=== PATIENT | female | born 2005 | race Hispanic/Latino ===

== ENCOUNTER 2024-08-15 16:01 | Emergency (ER) | payer OTHER ==
--- NOTE | 2024-08-15 18:49 | RAD REPORT ---
EXAM: CT Head Brain Wo Cont HISTORY: TRAUMA COMPARISON: None TECHNIQUE: Multiple contiguous axial images were obtained for a CT of the brain without contrast. Sag ittal and coronal reformats were performed. One or more of the following dose reduction techniques were used: Automated exposure control, adjus tment of the mA and kV according to patient size, and iterative reconstruction. Unless otherwise specified, incidental findings do not require dedicated imaging follow-up. FINDINGS: No evidence of hydrocephalus, intracranial hemorrhage, or extra-axial fluid collection. The brain is normal in morphology. The calvarium is intact. The visualized paranasal sinuses and mastoid air cells are essentially clear . IMPRESSION: No evidence of acute intracranial abnormality.
--- NOTE | 2024-08-15 19:14 | ER ---
Nurse's Notes [facility] Name: Jacob Nieto Age: 19 yrs Sex: Female : 2005 Arrival Date: 08/15/2024 Time: 16:01 Bed 10 Private MD: Diagnosis: Unspecified injury of head, initial encounter Presentation: 08/15 16:23 Chief complaint: Patient states: SLIPPED AND FELL ON GLOVE, HIT HEAD ON BACK OF db CABINET. HAD DIZZINESS, VOMITING, HEADACHE. Coronavirus screen: Client denies travel out of the [place] in the last 14 days. At this time, the client does not indicate any symptoms associated with coronavirus-19. Ebola Screen: Patient negative for fever greater than or equal to 101.5 degrees Fahrenheit, and additional compatible Ebola Virus Disease symptoms Patient denies exposure to infectious person. Patient denies travel to an Ebola-affected area in the 21 days before illness onset. No symptoms or risks identified at this time. Initial Sepsis Screen: Does the patient meet any 2 criteria? No. Patient's initial sepsis screen is negative. Does the patient have a suspected source of infection? No. Patient's initial sepsis screen is negative. Risk Assessment: Do you want to hurt yourself or someone else? Patient reports no desire to harm self or others. Onset of symptoms was August 15, 2024. 16:23 Method Of Arrival: Ambulatory 16:23 Acuity: HAZEL 3 db Historical: - Allergies: 16:27 PENICILLINS; db - Immunization history:: Adult Immunizations unknown. - Infectious Disease History:: Denies. - Social history:: Smoking status: Patient denies any tobacco usage or history of. Screenin:15 Abuse screen: Denies threats or abuse. Denies injuries from another. Nutritional ss screening: No deficits noted. Tuberculosis screening: Never had TB. Assessment: 18:15 General: Appears in no apparent distress. comfortable, Behavior is calm, cooperative, ss Denies fever, feeling ill. Neuro: Level of Consciousness is awake, alert, obeys commands, Oriented to person, place, time, situation. Respiratory: Airway is patent Respiratory effort is even, unlabored, Respiratory pattern is regular, symmetrical. GI: Patient currently denies nausea. EENT: Oral mucosa is moist. Derm: Skin is intact, is healthy with good turgor, Skin is pink, warm \T\ dry. normal. 19:32 Reassessment: Patient states feeling better. Patient states symptoms have improved. br2 Vital Signs: 16:23 BP 122 / 85; Pulse 66; Resp 16; Temp 97.3; Pulse Ox 95% ; Weight 76.2 kg; Height 4 ft. db 11 in. ; 16:23 Body Mass Index 33.93 (76.20 kg, 149.86 cm) db ED Course: 16:02 Patient arrived in ED. mr 16:02 Yenny Bliss FNP-C is PHCP. kb 16:02 Malena Mcclelland MD is Attending Physician. kb 16:27 Triage completed. db 16:28 Arm band placed on. db 17:10 CT Head Brain wo Cont In Process Unspecified. EDMS 18:15 Patient has correct armband on for positive identification. ss 18:15 No provider procedures requiring assistance completed. Patient did not have IV access ss during this emergency room visit. 18:53 Pooja Diaz, RN is Primary Nurse. ss Administered Medications: No medications were administered Medication: 18:15 VIS not applicable for this client. ss Outcome: 19:14 Discharge ordered by MD. kb 19:32 Discharged to home ambulatory, br2 19:32 Condition: stable 19:32 Discharge instructions given to patient, Instructed on discharge instructions, follow up and referral plans. Demonstrated understanding of instructions, follow-up care, 19:33 Patient left the ED. br2 Signatures: Dispatcher [employer] EDIL Yenny Bliss FNP-C ORANGE PICKER-Ckb ZieglerLelia, Reg Reg Pooja Diaz, RN RN Martina Simons RN RN db Aisha Lazo, LUANA RN br2 Corrections: (The following items were deleted from the chart) 16:28 16:27 Allergies: No Known Allergies; db db
--- NOTE | 2024-08-15 19:14 | EDPHYS ---
Physician Documentation [facility] Name: Jacob Nieto Age: 19 yrs Sex: Female : 2005 Arrival Date: 08/15/2024 Time: 16:01 Bed 10 Private MD: ED Physician Malena Mcclelland HPI: 08/15 17:12 This 19 yrs old Female presents to ER via Ambulatory with complaints of Fall kb Injury, Head Injury-Adult. 17:12 Patient is a 19-year-old female who presents after a head injury that occurred at 130 kb today. States she was walking and slipped on a glove causing her to fall back and hit her head on a brick counter. States she is not sure if she lost consciousness or not. Reports vomiting a lot after the fall, dizziness and headache.. Historical: - Allergies: 16:27 PENICILLINS; db - Immunization history:: Adult Immunizations unknown. - Infectious Disease History:: Denies. - Social history:: Smoking status: Patient denies any tobacco usage or history of. ROS: 17:13 Constitutional: As per HPI kb Exam: 17:13 Constitutional: This is a well developed, well nourished patient who is awake, alert, kb and in no acute distress. Head/Face: Normocephalic, atraumatic. Eyes: Pupils equal round and reactive to light, extra-ocular motions intact. Lids and lashes normal. Conjunctiva and sclera are non-icteric and not injected. Cornea within normal limits. Periorbital areas with no swelling, redness, or edema. ENT: Moist Mucous membranes Neck: Trachea midline and no cervical lymphadenopathy. Supple, full range of motion without nuchal rigidity, or vertebral point tenderness. No Meningismus. Cardiovascular: Regular rate Respiratory: Respirations even and unlabored. No increased work of breathing. Talking in full sentences Skin: Warm, dry with normal turgor. Normal color. MS/ Extremity: Pulses equal, no cyanosis. Neurovascular intact. Full, normal range of motion. Neuro: Awake and alert, GCS 15, oriented to person, place, time, and situation. Vital Signs: 16:23 BP 122 / 85; Pulse 66; Resp 16; Temp 97.3; Pulse Ox 95% ; Weight 76.2 kg; Height 4 ft. db 11 in. ; 16:23 Body Mass Index 33.93 (76.20 kg, 149.86 cm) db MDM: 16:02 Medical Screening Exam initiated 17:13 Differential diagnosis: fracture, ICH, concussion. Data reviewed: vital signs, nurses kb notes. 19:13 I considered the following discharge prescriptions or medication management in the emergency department I discussed and recommended Over The Counter medications. Counseling: I had a detailed discussion with the patient and/or guardian regarding the historical points, exam findings, and any diagnostic results supporting the discharge/admit diagnosis, radiology results, the need for outpatient follow up, a family practitioner, to return to the emergency department if symptoms worsen or persist or if there are any questions or concerns that arise at home. 08/15 16:23 Order name: CT Head Brain wo Cont; Complete Time: 18:57 kb Administered Medications: No medications were administered Disposition Summary: 08/15/24 19:14 Discharge Ordered Notes: Location: Home Condition: Stable Diagnosis - Unspecified injury of head, initial encounter kb Followup: kb - With: Emergency Department - When: As needed - Reason: Worsening of condition Followup: kb - With: Private Physician - When: 2 - 3 days - Reason: Recheck today's complaints, Continuance of care, Re-evaluation by your physician Discharge Instructions: - Discharge Summary Sheet kb - Head Injury, Adult, [id number] Forms: - Medication Reconciliation Form kb - Antibiotic Education kb - Prescription Opioid Use kb - Patient Portal Instructions kb - Leadership Thank You Letter Signatures: Dispatcher [employer] Yenny Pryor, GRAPHITE MILL OPERATOR-C GRAPHITE MILL OPERATOR-Martina Skaggs, RN RN db Corrections: (The following items were deleted from the chart) 16:28 16:27 Allergies: No Known Allergies; db db
--- OUTSIDE RECORDS SUMMARY | 2024-08-15 21:18 | XMS REPORT | Continuity of Care Document ---
Author Name Unknown Address [address] [place] [address] [facility] Address [address] [place] [address] Care Team Providers Care Stretch Box Tender Name Role Phone ANDREW TAYLOR Primary Care Physician Caridad vailable Arabella GAMINO Attending Clinician Unavailable Arabella Acosta Attending Clinician [phone] Wendy Rehman MD Attending Clinician [phone] WENDY REHMAN Attending Clinician Unavailable Doctor Unassigned, [place] Attending Clinician U musa Garrison, Ang - Db Attending Clinician Unavailable JAGDISH ESCAMILLA Attending Clinician Unavailable PILLO BONDS Attending Clinician Caridad vailable Payers Payer Name Policy Type Policy Number Effective Date Expirati on Date Source TUNG POLLARD [id number] 2023 00:00:00 Problems Condition Name Condition Details Condition Category Status Onset Date Resolution Date Last Treatment Date Treating Clinician Comments Source Obesity (BMI 30-39.9) Obesity (BMI 30-39.9) Disease Active 2022-03 1- 00:00: 00 [facility] No known active problems No known active problems Disease [facility] Allergies, Adverse Reactions, Alerts Allergy Name Allergy Type Status Severity Reaction(s) Onset Date Inactive Date Treating Clinician Comments Source Penicill in Propensi ty to adverse reaction s to drug Active Hives 05-31 00:00: 00 [facility] PENICILL IN DRUG INGREDI Active High Hives 3-05 00:00: 00 [facility] NO KNOWN ALLERGIE S Drug Class Active [facility] Social History Social Habit Start Date Stop Date Quantity Comments Source History SDOH Alcohol Std Drinks [facility] History SDOH Alcohol Binge [facility] Exposure to SARS-CoV-2 (event) Not sure [facility] intake 2023-04-11 00:00:00 2023-04-11 00:00:00 Lifetime non-drinker (finding) [facility] History of Social function 2023-04-11 00:00:00 2023-04-11 00:00:00 [facility] Tobacco use and exposure 2023-01-20 00:00:00 2023-01-20 00:00:00 Smokeless tobacco non-user [facility] History SDOH Alcohol Frequency 2020-05-31 00:00:00 2020-05-31 00:00:00 1 [facility] Sex Assigned At 2005 00:00:00 2005 00:00:00 [facility] Smoking Status Start Date Stop Date Source Never smoked tobacco [facility] Medications Ordered Medication Name Filled Medication Name Start Date Stop Date Current Medication? Ordering Clinician Indication Dosage Frequency Signature (SIG) Comments Components Source acetaminoph en (TYLENOL) tablet 1,000 mg 04-12 03:45: 00 04-12 03:39 :00 No 1000mg 1,000 mg, Oral, ONCE, 1 dose, On 04/11/23 at 2145, Routine [facility] ondansetron 4 mg disintegrat ing tablet 04-11 00:00: 00 Yes [id number] 4mg Take 1 tablet by mouth every 8 (eight) hours as needed for Nausea and Vomiting (N/V). [facility] benzonatate 200 mg capsule 04-11 00:00: 00 Yes [id number] 200mg Take 1 capsule by mouth 3 (three) times daily as needed for Cough for up to 20 doses. [facility] lidocaine 2 % mucosal jelly 2022-03 0 00:00: 00 02-04 00:00 :00 No [id number] 1[in_us ] Apply 1 Inch to area(s) every 4 (four) hours as needed (pain). [facility] valACYclovi r (VALTREX) 1 gram tablet 2022-03 0 00:00: 00 02-04 00:00 :00 No [id number] 1g Take 1 tablet by mouth in the morning and 1 tablet in the evening. [facility] etonogestre L (NEXPLANON) implant 68 mg 06-25 20:00: 00 06-25 18:47 :00 No [id number] 68mg [facility] No known medications No [facility] No known medications No Un j[facility]el[facility] No known medications No Un joseluis [facility] Vital Signs Vital Name Observation Time Observation Value Comments S ource Systolic blood pressure 2023-04-12 02:27:00 117 mm[Hg] [facility] Diastolic blood pressure 2023-04-12 02:27:00 72 mm[Hg] [facility] Heart rate 2023-04-12 02:27:00 100 /min [facility] Body temperature 2023-04-12 02:27:00 37.39 Marilyn [facility] Respiratory rate 2023-04-12 02:27:00 18 /min [facility] Body height 2023-04-12 02:27:00 152.4 cm [facility] Body weight 2023-04-12 02:27:00 74.072 kg [facility] BMI 2023-04-12 02:27:00 31.89 kg/m2 [facility] Oxygen saturation in Arterial blood by Pulse oximetry 2023-04-12 02:27:00 99 /min [facility] Systolic blood pressure 2023-03-05 19:21:00 121 mm[Hg] [facility] Diastolic blood pressure 2023-03-05 19:21:00 77 mm[Hg] [facility] Heart rate 2023-03-05 19:21:00 100 /min [facility] Body temperature 2023-03-05 19:21:00 36.94 Marilyn [facility] Respiratory rate 2023-03-05 19:21:00 18 /min [facility] Body height 2023-03-05 19:21:00 152.4 cm [facility] Body weight 2023-03-05 19:21:00 74.39 kg [facility] BMI 2023-03-05 19:21:00 32.03 kg/m2 [facility] Body mass index (BMI) [Percentile] Per age and sex 2023-03-05 19:21:00 95.57 % [facility] Systolic blood pressure 2023-02-04 21:04:00 117 mm[Hg] [facility] Diastolic blood pressure 2023-02-04 21:04:00 81 mm[Hg] [facility] Heart rate 2023-02-04 21:04:00 114 /min [facility] Body temperature 2023-02-04 21:04:00 36.5 Marilyn [facility] Respiratory rate 2023-02-04 21:04:00 18 /min [facility] Body height 2023-02-04 21:04:00 152.4 cm [facility] Body weight 2023-02-04 21:04:00 74.844 kg [facility] BMI 2023-02-04 21:04:00 32.22 kg/m2 [facility] Body mass index (BMI) [Percentile] Per age and sex 2023-02-04 21:04:00 95.70 % [facility] Systolic blood pressure 2023-01-20 16:14:00 128 mm[Hg] [facility] Diastolic blood pressure 2023-01-20 16:14:00 80 mm[Hg] [facility] Heart rate 2023-01-20 16:14:00 104 /min [facility] Body temperature 2023-01-20 16:14:00 36.5 Marilyn [facility] Respiratory rate 2023-01-20 16:14:00 16 /min [facility] Body height 2023-01-20 16:14:00 152.4 cm [facility] Body weight 2023-01-20 16:14:00 74.526 kg [facility] BMI 2023-01-20 16:14:00 32.09 kg/m2 [facility] Body mass index (BMI) [Percentile] Per age and sex 2023-01-20 16:14:00 95.65 % [facility] Systolic blood pressure 2020-06-25 18:05:00 108 mm[Hg] [facility] Diastolic blood pressure 2020-06-25 18:05:00 65 mm[Hg] [facility] Heart rate 2020-06-25 18:05:00 91 /min [facility] Body temperature 2020-06-25 18:05:00 36.83 Marilyn [facility] Respiratory rate 2020-06-25 18:05:00 18 /min [facility] Body height 2020-06-25 18:05:00 152.4 cm [facility] Body weight 2020-06-25 18:05:00 64.411 kg [facility] BMI 2020-06-25 18:05:00 27.73 kg/m2 [facility] Systolic blood pressure 2020-05-31 20:13:00 120 mm[Hg] [facility] Diastolic blood pressure 2020-05-31 20:13:00 73 mm[Hg] [facility] Heart rate 2020-05-31 20:13:00 99 /min [facility] Body temperature 2020-05-31 20:13:00 36.78 Marilyn [facility] Respiratory rate 2020-05-31 20:13:00 16 /min [facility] Body height 2020-05-31 20:13:00 152.4 cm [facility] Body weight 2020-05-31 20:13:00 64.32 kg [facility] BMI 2020-05-31 20:13:00 27.69 kg/m2 [facility] Procedures Procedure Date / Time Performed Performing Clinicia n Source ASSIGNMENT OF BENEFITS 2023-04-12 03:01:55 Docsherman r Unassigned, [place] [facility] RAPID STREP SCREEN FOR GROUP A 2023-04-12 02:41:00 Arabella Gamino [facility] RAPID INFLUENZA A/B 2023-04-12 02:41:00 Arabella Gamino [facility] COVID-19 (ID NOW RAPID TESTING) 2023-04-12 02:41:00 Arabella Gamino [facility] CONSENT/REFUSAL FOR DIAGNOSIS AND TREATMENT 2023-04-12 02:14:23 Doctor Unassigned, [place] [facility] DISCLOSURE AND CONSENT, MEDICAL AND SURGICAL PROCEDURES 2023-03-05 06:01:00 Doctor Unassigned, [place] [facility] DISCLOSURE AND CONSENT, MEDICAL AND SURGICAL PROCEDURES 2023-02-04 06:01:00 Doctor Unassigned, [place] [facility] GC & CHLAMYDIA AMPLIFIED ASSAY 2023-01-20 18:38:00 Adum, Wendy Gonzalez [facility] WOUND/ASPIRATE OR ABSCESS CULTURE 2023-01-20 18:36:00 Adum, Wendy Gonzalez [facility] GALV ONLY - VAGINAL PATHOGENS BY NUCLEIC ACID TESTING 2023-01-20 18:36:00 Adum, Wendy Gonzalez [facility] HSV 1&2, VZV NAAT 2023-01-20 18:36:00 Adum, Wendy Woods [facility] WOUND CULTURE 2023-01-20 18:36:00 [facility] 2023-01-20 15:59:54 Docsherman r Unassigned, [place] [facility] POCT TEST 2020-06-25 00:00:00 Adum, Wendy Gonzalez [facility] POCT TEST 2020-05-31 20:29:00 Adum, Wendy Gonzalez [facility] Encounters Start Date/Time End Date/Time Encounter Type Admission Type Attending [facility] Care Facility Care Department Encounter ID Source 2023-04-11 20:45:00 2023-04-11 21:58:00 Emergency X Arabella GAMINO [facility] ERT [id number] [facility] 2023-04-11 20:45:00 2023-04-11 21:58:00 Emergency Arabella Gamino [facility] [id number] 350.1.13.10 4.2.7.2.686 [id number] [facility] 2023-03-05 13:15:00 2023-03-05 13:45:00 Office Visit AdumBelenWendy Lisa [facility] [id number] 350.1.13.10 4.2.7.2.686 [id number] [facility] 2023-03-05 13:15:00 2023-03-05 13:15:00 Outpatient R [facility] [id number] [facility] 2023-03-05 00:00:00 2023-03-05 00:00:00 Orders Only Doctor Unassigned, [place] [facility] 1.20.114 350.1.13.10 4.2.7.2.686 [id number] [facility] 2023-02-04 15:00:00 2023-02-04 15:47:46 [facility] [id number] 350.1.13.10 4.2.7.2.686 [id number] [facility] 2023-02-04 15:00:00 2023-02-04 15:47:46 Outpatient R [facility] [id number] [facility] 2023-02-04 00:00:00 2023-02-04 00:00:00 Orders Only Doctor Unassigned, [place] [facility] [id number] 350.1.13.10 4.2.7.2.686 [id number] [facility] 2023-01-21 13:45:00 2023-01-21 13:45:00 Photo Equipment Technician Visit Lab, Brandon Rehman Wendy [facility] 1..840.114 350.1.13.10 4.2.7.2.686 [id number] [facility] 2023-01-21 13:45:00 2023-01-21 12:39:17 Outpatient R [facility]IE [facility] [id number] [facility] 2023-01-20 11:00:00 2023-01-20 13:09:38 Office Visit Sherie Wendy [facility] 1..840.114 350.1.13.10 4.2.7.2.686 [id number] [facility] 2023-01-20 11:00:00 2023-01-20 13:09:38 Outpatient Lorenza REHMAN [facility] [id number] [facility] 2023-01-20 00:00:00 2023-01-20 00:00:00 Orders Only Doctor Unassigned, [place] [facility] 1..840.114 350.1.13.10 4.2.7.2.686 [id number] [facility] 2022-11-23 14:30:00 2022-11-23 14:30:00 Outpatient JAGDISH CHÁVEZ [facility] [id number] [facility] 2022-11-19 10:30:00 2022-11-19 10:30:00 Outpatient R [facility]IE [facility] [id number] [facility] 2022-10-22 11:33:00 2022-10-22 16:28:00 Outpatient PILLO BONDS SE [address] [place] [address] 2020-06-25 12:59:21 2020-06-25 13:55:01 Office Visit Wendy Rehman [facility] [id number] 350.1.13.10 4.2.7.2.686 [id number] [facility] 2020-06-25 13:00:00 2020-06-25 13:00:00 Outpatient R WENDY REHMAN [facility] [id number] [facility] 2020-06-25 00:00:00 2020-06-25 00:00:00 Letter (Out) Wendy Rehman [facility] [id number] 350.1.13.10 4.2.7.2.686 [id number] [facility] 2020-06-07 14:30:00 2020-06-07 14:30:00 Outpatient R WENDY REHMAN [facility] [id number] [facility] 2020-05-31 13:55:34 2020-05-31 16:43:41 Office Visit Wendy Rehman [facility] [id number] 350.1.13.10 4.2.7.2.686 [id number] [facility] 2020-05-31 14:00:00 2020-05-31 14:00:00 Outpatient R WENDY REHMAN [facility] [id number] [facility] Results Test Description Test Time Test Comments Results Result Co mments Source [facility] [id number] 19:00:00* Test Item Value Reference Range Interpretation Comme nts POCT PREG (test code = 1605) Negative On board controls acceptable with C Line (test code = 3574) Yes POCT PREG LOT # (test code = 3575) POCT PREG TEST DATE ( test code = 3576) [facility] [id number] 20:29:00* Test Item Value Reference Range Interpretation Comme nts POCT PREG (test code = 1605) Negative On board controls acceptable with C Line (test code = 3574) Yes POCT PREG LOT # (test code = 3575) POCT PREG TEST DATE (test code = 3576) PRABHA (test code = PRABHA) accurate developme nt and interpretation of all internal controls [facility] [id number] 20:29:00* Test Item Value Reference Range Interpretation Comme nts POCT PREG (test code = 1605) Negative On board controls acceptable with C Line (test code = 3574) Yes POCT PREG LOT # (test code = 3575) POCT PREG TEST DATE (test code = 3576) PRABHA (test code = PRABHA) accurate developme nt and interpretation of all internal controls [facility] Notes Date/Time Note Provider Source 2023-04-11 21:58:22 Pt dc'd home ambulatory. Pt v/u of dc instructions, prescription drug use, and s/s of worsening symptoms. IE Padilla RN [facility] 2023-04-11 20:26:11 Pt arriving to ED reporting fever, sore throat, & coughing since yesterday. IE Pritchard RN [facility]
== END 2024-08-15 19:33 | disposition home or self-care (01) ==
LOC: ER 16:01
DX: S09.90XA Unspecified injury of head, initial encounter (principal); W01.198A Fall on same level from slipping, tripping and stumbling with subsequent striking against other object, initial encounter
CPT/HCPCS: 70450

== ENCOUNTER 2024-11-14 21:42 | Emergency (ER) | payer OTHER ==
--- OUTSIDE RECORDS SUMMARY | 2024-11-14 21:45 | XMS REPORT | Continuity of Care Document ---
Author Name Unknown Address [address] [facility] [address] [place] [address] [facility] Address [address] [address] [place] [address] Care Team Providers Care Chinese Medicine Practitioner Name Role Phone ANDREW TAYLOR Primary Care Physician Caridad vailable Arabella GAMINO Attending Clinician Unavailable Arabella Acosta Attending Clinician [phone] Wendy Rehman MD Attending Clinician [phone] WENDY REHMAN Attending Clinician Unavailable Doctor Unassigned, [place] Attending Clinician U musa Garrison, Ang - Db Attending Clinician Unavailable JAGDISH ESCAMILLA Attending Clinician Unavailable PILLO BONDS Attending Clinician Caridad vailable Payers Payer Name Policy Type Policy Number Effective Date Expirati on Date Source TUNG POLLARD [id number] 2023 00:00:00 Problems Condition Name Condition Details Condition Category Status Onset Date Resolution Date Last Treatment Date Treating Clinician Comments Source Obesity (BMI 30-39.9) Obesity (BMI 30-39.9) Disease Active 2022-03 1- 00:00: 00 [facility] No known active problems No known active problems Disease [facility] Allergies, Adverse Reactions, Alerts Allergy Name Allergy Type Status Severity Reaction(s) Onset Date Inactive Date Treating Clinician Comments Source Penicill in Propensi ty to adverse reaction s to drug Active Hives 05-31 00:00: 00 [facility] PENICILL IN DRUG INGREDI Active High Hives 3-05 00:00: 00 [facility] NO KNOWN ALLERGIE S Drug Class Active [facility] Social History Social Habit Start Date Stop Date Quantity Comments Source History SDOH Alcohol Std Drinks [facility] History SDOH Alcohol Binge [facility] Exposure to SARS-CoV-2 (event) Not sure [facility] Alcohol intake 2023-04-11 00:00:00 2023-04-11 00:00:00 Lifetime non-drinker (finding) [facility] History of Social function 2023-04-11 00:00:00 2023-04-11 00:00:00 [facility] Tobacco use and exposure 2023-01-20 00:00:00 2023-01-20 00:00:00 Smokeless tobacco non-user [facility] History SDOH Alcohol Frequency 2020-05-31 00:00:00 2020-05-31 00:00:00 1 [facility] Sex Assigned At 2005 00:00:00 2005 00:00:00 [facility] Smoking Status Start Date Stop Date Source Never smoked tobacco [facility] Medications Ordered Medication Name Filled Medication Name Start Date Stop Date Current Medication? Ordering Clinician Indication Dosage Frequency Signature (SIG) Comments Components Source acetaminoph en (TYLENOL) tablet 1,000 mg 04-12 03:45: 00 04-12 03:39 :00 No 1000mg 1,000 mg, Oral, ONCE, 1 dose, On 04/11/23 at 2145, Routine [facility] ondansetron 4 mg disintegrat ing tablet 04-11 00:00: 00 Yes [id number] 4mg Take 1 tablet by mouth every 8 (eight) hours as needed for Nausea and Vomiting (N/V). [facility] benzonatate 200 mg capsule 04-11 00:00: 00 Yes [id number] 200mg Take 1 capsule by mouth 3 (three) times daily as needed for Cough for up to 20 doses. [facility] lidocaine 2 % mucosal jelly 2022-03 0 00:00: 00 02-04 00:00 :00 No [id number] 1[in_us ] Apply 1 Inch to area(s) every 4 (four) hours as needed (pain). [facility] valACYclovi r (VALTREX) 1 gram tablet 2022-03 0 00:00: 00 02-04 00:00 :00 No [id number] 1g Take 1 tablet by mouth in the morning and 1 tablet in the evening. [facility] etonogestre L (NEXPLANON) implant 68 mg 06-25 20:00: 00 06-25 18:47 :00 No [id number] 68mg Univer [facility] No known medications No Un joseluis [facility] No known medications No Un joseluis [facility] No known medications No Un joseluis [facility] Vital Signs Vital Name Observation Time Observation Value Comments S ource Systolic blood pressure 2023-04-12 02:27:00 117 mm[Hg] [facility] Diastolic blood pressure 2023-04-12 02:27:00 72 mm[Hg] [facility] Heart rate 2023-04-12 02:27:00 100 /min [facility] Body temperature 2023-04-12 02:27:00 37.39 Marilyn [facility] Respiratory rate 2023-04-12 02:27:00 18 /min [facility] Body height 2023-04-12 02:27:00 152.4 cm [facility] Body weight 2023-04-12 02:27:00 74.072 kg [facility] BMI 2023-04-12 02:27:00 31.89 kg/m2 [facility] Oxygen saturation in Arterial blood by Pulse oximetry 2023-04-12 02:27:00 99 /min [facility] Systolic blood pressure 2023-03-05 19:21:00 121 mm[Hg] [facility] Diastolic blood pressure 2023-03-05 19:21:00 77 mm[Hg] [facility] Heart rate 2023-03-05 19:21:00 100 /min [facility] Body temperature 2023-03-05 19:21:00 36.94 Marilyn [facility] Respiratory rate 2023-03-05 19:21:00 18 /min [facility] Body height 2023-03-05 19:21:00 152.4 cm [facility] Body weight 2023-03-05 19:21:00 74.39 kg [facility] BMI 2023-03-05 19:21:00 32.03 kg/m2 [facility] Body mass index (BMI) [Percentile] Per age and sex 2023-03-05 19:21:00 95.57 % [facility] Systolic blood pressure 2023-02-04 21:04:00 117 mm[Hg] [facility] Diastolic blood pressure 2023-02-04 21:04:00 81 mm[Hg] [facility] Heart rate 2023-02-04 21:04:00 114 /min [facility] Body temperature 2023-02-04 21:04:00 36.5 Marilyn [facility] Respiratory rate 2023-02-04 21:04:00 18 /min [facility] Body height 2023-02-04 21:04:00 152.4 cm [facility] Body weight 2023-02-04 21:04:00 74.844 kg [facility] BMI 2023-02-04 21:04:00 32.22 kg/m2 [facility] Body mass index (BMI) [Percentile] Per age and sex 2023-02-04 21:04:00 95.70 % [facility] Systolic blood pressure 2023-01-20 16:14:00 128 mm[Hg] [facility] Diastolic blood pressure 2023-01-20 16:14:00 80 mm[Hg] [facility] Heart rate 2023-01-20 16:14:00 104 /min [facility] Body temperature 2023-01-20 16:14:00 36.5 Marilyn [facility] Respiratory rate 2023-01-20 16:14:00 16 /min [facility] Body height 2023-01-20 16:14:00 152.4 cm [facility] Body weight 2023-01-20 16:14:00 74.526 kg [facility] BMI 2023-01-20 16:14:00 32.09 kg/m2 [facility] Body mass index (BMI) [Percentile] Per age and sex 2023-01-20 16:14:00 95.65 % [facility] Systolic blood pressure 2020-06-25 18:05:00 108 mm[Hg] [facility] Diastolic blood pressure 2020-06-25 18:05:00 65 mm[Hg] [facility] Heart rate 2020-06-25 18:05:00 91 /min [facility] Body temperature 2020-06-25 18:05:00 36.83 Marilyn [facility] Respiratory rate 2020-06-25 18:05:00 18 /min [facility] Body height 2020-06-25 18:05:00 152.4 cm [facility] Body weight 2020-06-25 18:05:00 64.411 kg [facility] BMI 2020-06-25 18:05:00 27.73 kg/m2 [facility] Systolic blood pressure 2020-05-31 20:13:00 120 mm[Hg] [facility] Diastolic blood pressure 2020-05-31 20:13:00 73 mm[Hg] [facility] Heart rate 2020-05-31 20:13:00 99 /min [facility] Body temperature 2020-05-31 20:13:00 36.78 Marilyn [facility] Respiratory rate 2020-05-31 20:13:00 16 /min [facility] Body height 2020-05-31 20:13:00 152.4 cm [facility] Body weight 2020-05-31 20:13:00 64.32 kg [facility] BMI 2020-05-31 20:13:00 27.69 kg/m2 [facility] Procedures Procedure Date / Time Performed Performing Clinicia n Source ASSIGNMENT OF BENEFITS 2023-04-12 03:01:55 Docsherman r Unassigned, [place] [facility] RAPID STREP SCREEN FOR GROUP A 2023-04-12 02:41:00 Arabella Gamino [facility] RAPID INFLUENZA A/B 2023-04-12 02:41:00 Arabella Gamino [facility] COVID-19 (ID NOW RAPID TESTING) 2023-04-12 02:41:00 Arabella Gamino [facility] CONSENT/REFUSAL FOR DIAGNOSIS AND TREATMENT 2023-04-12 02:14:23 Doctor Unassigned, [place] [facility] DISCLOSURE AND CONSENT, MEDICAL AND SURGICAL PROCEDURES 2023-03-05 06:01:00 Doctor Unassigned, [place] [facility] DISCLOSURE AND CONSENT, MEDICAL AND SURGICAL PROCEDURES 2023-02-04 06:01:00 Doctor Unassigned, [place] [facility] GC & CHLAMYDIA AMPLIFIED ASSAY 2023-01-20 18:38:00 Adum, Wendy Gonzalez [facility] WOUND/ASPIRATE OR ABSCESS CULTURE 2023-01-20 18:36:00 Adum, Wendy Gonzalez [facility] GALV ONLY - VAGINAL PATHOGENS BY NUCLEIC ACID TESTING 2023-01-20 18:36:00 Adum, Wendy Gonzalez [facility] HSV 1&2, VZV NAAT 2023-01-20 18:36:00 Adum, Wendy Woods [facility] WOUND CULTURE 2023-01-20 18:36:00 [facility] 2023-01-20 15:59:54 Docsherman r Unassigned, [place] [facility] POCT TEST 2020-06-25 00:00:00 Adum, Wendy Gonzalez [facility] POCT TEST 2020-05-31 20:29:00 Adum, Wendy Gonzalez [facility] Encounters Start Date/Time End Date/Time Encounter Type Admission Type Attending [facility] Care Facility Care Department Encounter ID Source 2023-04-11 20:45:00 2023-04-11 21:58:00 Emergency X Arabella GAMINO [facility] E[facility] [id number] [facility] 2023-04-11 20:45:00 2023-04-11 21:58:00 Emergency Arabella Gamino [facility] [id number] 350.1.13.10 4.2.7.2.686 [id number] [facility] 2023-03-05 13:15:00 2023-03-05 13:45:00 Office Visit AdumBelenWendy Lisa [facility] 1.2840.114 350.1.13.10 4.2.7.2.686 [id number] [facility] 2023-03-05 13:15:00 2023-03-05 13:15:[address] [facility] [id number] [facility] 2023-03-05 00:00:00 2023-03-05 00:00:00 Orders Only Doctor Unassigned, [place] [facility] 1.20.114 350.1.13.10 4.2.7.2.686 [id number] [facility] 2023-02-04 15:00:00 2023-02-04 15:47:46 [facility] 1.2840.114 350.1.13.10 4.2.7.2.686 [id number] [facility] 2023-02-04 15:00:00 2023-02-04 15:47:[address] [facility] [id number] [facility] 2023-02-04 00:00:00 2023-02-04 00:00:00 Orders Only Doctor Unassigned, [place] [facility] 1.2840.114 350.1.13.10 4.2.7.2.686 [id number] [facility] 2023-01-21 13:45:00 2023-01-21 13:45:00 Sediment Remediation Consultant Visit Lab, Brandon Rehman Wendy [facility] 1..840.114 350.1.13.10 4.2.7.2.686 [id number] [facility] 2023-01-21 13:45:00 2023-01-21 12:39:[address] [facility] [id number] [facility] 2023-01-20 11:00:00 2023-01-20 13:09:38 Office Visit Sherie Wendy [facility] 1..840.114 350.1.13.10 4.2.7.2.686 [id number] [facility] 2023-01-20 11:00:00 2023-01-20 13:09:[address] [facility] [id number] [facility] 2023-01-20 00:00:00 2023-01-20 00:00:00 Orders Only Doctor Unassigned, [place] [facility] 1..840.114 350.1.13.10 4.2.7.2.686 [id number] [facility] 2022-11-23 14:30:00 2022-11-23 14:30:00 Outpatient JAGDISH CHÁVEZ [facility] [id number] [facility] 2022-11-19 10:30:00 2022-11-19 10:30:[address] [facility] [id number] [facility] 2022-10-22 11:33:00 2022-10-22 16:28:00 Outpatient PILLO BONDS SE SE [address] [place] [address] 2020-06-25 12:59:21 2020-06-25 13:55:01 Office Visit Wendy Rehman [facility] [id number] 350.1.13.10 4.2.7.2.686 [id number] [facility] 2020-06-25 13:00:00 2020-06-25 13:00:00 Outpatient R WENDY REHMAN [facility] [id number] [facility] 2020-06-25 00:00:00 2020-06-25 00:00:00 Letter (Out) Wendy Rehman [facility] [id number] 350.1.13.10 4.2.7.2.686 [id number] [facility] 2020-06-07 14:30:00 2020-06-07 14:30:00 Outpatient R WENDY REHMAN [facility] [id number] [facility] 2020-05-31 13:55:34 2020-05-31 16:43:41 Office Visit Wendy Rehman [facility] [id number] 350.1.13.10 4.2.7.2.686 [id number] [facility] 2020-05-31 14:00:00 2020-05-31 14:00:00 Outpatient R WENDY REHMAN [facility] [id number] [facility] Results Test Description Test Time Test Comments Results Result Co mments Source [id number]:00:00* Test Item Value Reference Range Interpretation Comme nts POCT PREG (test code = 1605) Negative On board controls acceptable with C Line (test code = 3574) Yes POCT PREG LOT # (test code = 3575) POCT PREG TEST DATE ( test code = 3576) [facility] [id number] 20:29:00* Test Item Value Reference Range Interpretation Comme nts POCT PREG (test code = 1605) Negative On board controls acceptable with C Line (test code = 3574) Yes POCT PREG LOT # (test code = 3575) POCT PREG TEST DATE (test code = 3576) PRABHA (test code = PRABHA) accurate developme nt and interpretation of all internal controls [facility] [id number] 20:29:00* Test Item Value Reference Range Interpretation Comme nts POCT PREG (test code = 1605) Negative On board controls acceptable with C Line (test code = 3574) Yes POCT PREG LOT # (test code = 3575) POCT PREG TEST DATE (test code = 3576) PRABHA (test code = PRABHA) accurate developme nt and interpretation of all internal controls [facility] Notes Date/Time Note Provider Source 2023-04-11 21:58:22 Pt dc'd home ambulatory. Pt v/u of dc instructions, prescription drug use, and s/s of worsening symptoms. IE Padilla RN [facility] 2023-04-11 20:26:11 Pt arriving to ED reporting fever, sore throat, & coughing since yesterday. IE Pritchard RN [facility]
[2024-11-14] MEDS ORDERED: NA CHLORIDE 0.9% 2,000 ML ONE (22:26)
[2024-11-14] MEDS ORDERED: ONDANSETRON 4 MG/2 ML VIAL ONE (22:26)
[2024-11-14 22:36] LABS: Absolute Lymphocytes (CBC) 1.2 K/uL (0.7-4.9); Hematocrit 40.1 % (36.0-45.0); Hemoglobin 13.2 g/dL (12.0-15.0); MCH 25.7 pg (27.0-35.0); MCHC 32.9 g/dL (32.0-36.0); MCV 78.1 fL (80-100); MPV 8.1 fL (7.6-11.3); Nucleated RBC Absolute Count 0.0 (0-0); Nucleated Red Blood Cells % 0.0 % (0-0); RBC Red Blood Cell Count 5.13 M/uL (3.86-4.86); White Blood Count 11.60 thou/uL (4.3-10.9)
[2024-11-14 22:40] LABS: PT Prothrombin Time 12.8 SECONDS (10-13.0); PTT, Activated Partial Thromb 28.3 SECONDS (27.2-37.4); Protime INR 1.14
[2024-11-14 22:49] LABS: ALT/SGPT 28 U/L (13-56); AST/SGOT 11 U/L (15-37); Albumin 4.7 g/dL (3.4-5.0); Albumin/Globulin Ratio 1.6 (1.1-1.8); Alkaline Phosphatase 86 U/L (45-117); Anion Gap 9.4 mEq/L (5.0-15.0); BUN Blood Urea Nitrogen 16 mg/dL (7-18); Globulin 3.0 g/dL (2.3-3.5); Glucose Level 89 mg/dL (74-106); Potassium 3.4 mEq/L (3.5-5.1)
[2024-11-14 22:50] LABS: Bilirubin Indirect, Calculated 0.1 mg/dL (0.2-0.8)
[2024-11-14 23:33] LABS: METHAMPHETAM NEGATIVE (NEGATIVE); THC Cannibis NEGATIVE (NEGATIVE)
--- NOTE | 2024-11-15 06:42 | EDPHYS ---
Physician Documentation [facility] Name: Jacob Nieto Age: 19 yrs Sex: Female : 2005 Arrival Date: 11/14/2024 Time: 21:36 Bed 3 Private MD: ED Physician Eddie Silva HPI: 11/14 21:38 This 19 yrs old Female presents to ER via Unassigned with complaints of gen sp4 complaint . 11/15 06:38 19-year-old female presents with acute overdose of Benadryl. Patient states she took 12 sp4 to 14 tablets of diphenhydramine at home after argument with her grandmother.. 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 - Infectious Disease History:: Denies. - Social history:: Smoking status: Patient denies any tobacco usage or history of. - Family history:: not pertinent. ROS: 11/15 06:38 Constitutional: Negative for fever, chills, and weight loss, positive for emotional sp4 upset, positive for suicide attempt All other systems are negative, Exam: 11/14 23:16 Constitutional: This is a well developed, well nourished patient who is awake, alert, sp4 and in no acute distress. Head/Face: Normocephalic, atraumatic. Eyes: Pupils equal round and reactive to light, extra-ocular motions intact. Lids and lashes normal. Conjunctiva and sclera are not injected. Cornea within normal limits. Periorbital areas with no swelling, redness, or edema. ENT: Nares patent. No nasal discharge, no septal abnormalities noted. Tympanic membranes are normal and external auditory canals are clear. Oropharynx with no redness, swelling, or masses, exudates, or evidence of obstruction, uvula midline. Mucous membranes moist. Neck: Trachea midline, no thyromegaly or masses palpated, and no cervical lymphadenopathy. Supple, full range of motion without nuchal rigidity, or vertebral point tenderness. Chest/axilla: Normal chest wall appearance and motion. Nontender with no deformity. No lesions are appreciated. Cardiovascular: Regular rate and rhythm with a normal S1 and S2. No gallops, murmurs, or rubs. No pulse deficits. Respiratory: Lungs have equal breath sounds bilaterally, clear to auscultation and percussion. No rales, rhonchi or wheezes noted. No increased work of breathing, no retractions or nasal flaring. Abdomen/GI: Soft, with normal bowel sounds. No distension or tympany. No guarding or rebound. No evidence of tenderness throughout. Back: No spinal tenderness. No costovertebral tenderness. Skin: Warm, dry with normal turgor. Normal color with no rashes, no lesions, and no evidence of cellulitis. MS/ Extremity: Pulses equal, no cyanosis. Neurovascular intact. Full, normal range of motion. Neuro: Awake and alert, GCS 15, oriented to person, place, time, and situation. Cranial nerves II-XII grossly intact. Motor strength 5/5 in all extremities. Sensory grossly intact. Psych: Awake, alert, with orientation to person, place and time. Behavior, mood, and affect are within normal limits ECG was reviewed by the Attending Physician. EKG at 2152 reveals sinus tachycardia rate 128 otherwise unremarkable. Vital Signs: 21:53 BP 132 / 91; Pulse 126; Resp 17; Temp 99.6; Pulse Ox 100% on R/A; Weight 78.02 kg; 3 Height 4 ft. 11 in. ; Pain 0/10; 22:00 BP 97 / 28; Pulse 123; Resp 24; Temp 98.6; Pulse Ox 100% on R/A; 3 23:00 BP 125 / 88; Pulse 116; Resp 21; Temp 98.3; Pulse Ox 99% on R/A; 3 08 00:00 BP 121 / 85; Pulse 112; Resp 14; Pulse Ox 100% on R/A; 3 01:00 BP 123 / 81; Pulse 103; Resp 18; Pulse Ox 96% on R/A; 3 02:00 BP 118 / 75; Pulse 100; Resp 22; Pulse Ox 98% on R/A; 3 02:54 BP 119 / 73; Pulse 98; Resp 21; Pulse Ox 98% on R/A; bm8 03:00 BP 114 / 71; Pulse 94; Resp 18; Temp 98.3; Pulse Ox 96% ; Pain 0/10; bm8 04:00 BP 97 / 49; Pulse 83; Resp 19; Pulse Ox 95% on R/A; mf3 05:00 BP 112 / 74; Pulse 78; Resp 19; Pulse Ox 96% on R/A; mf3 06:00 BP 109 / 74; Pulse 84; Resp 17; Pulse Ox 97% on R/A; mf3 07:00 BP 107 / 70; Pulse 80; Resp 16; Pulse Ox 96% on R/A; ph 08:00 BP 102 / 64; Pulse 88; Resp 16; Pulse Ox 97% on R/A; ph 09:15 BP 114 / 78; Pulse 86; Resp 18; Temp 98.2; Pulse Ox 98% on R/A; ph 11/14 21:53 Body Mass Index 34.74 (78.02 kg, 149.86 cm) 3 11/14 21:53 Pain Scale: Adult 3 03:00 Pain Scale: Adult bm8 [place] Coma Score: 11/14 21:59 Eye Response: spontaneous(4). Motor Response: obeys commands(6). Verbal Response: mf3 oriented(5). Total: 15. 23:16 Eye Response: spontaneous(4). Motor Response: obeys commands(6). Verbal Response: sp4 oriented(5). Total: 15. 11/15 08:00 Eye Response: to voice(3). Motor Response: obeys commands(6). Verbal Response: ph oriented(5). Total: 14. MDM: 11/14 21:44 Medical Screening Exam initiated sp4 11/15 06:38 Differential Diagnosis altered mental status, sepsis, Suicide attempt.. Data reviewed: sp4 vital signs, nurses notes, EMS record, old medical records, lab test result(s), EKG. Consideration of Admission/Observation Escalation of care including admission/observation considered. ED course: Patient has been monitored in the emergency department.. 06:41 ED course: After 9 hours of monitoring patient is hemodynamically stable. Patient sp4 stable for transfer to the psychiatric hospital for further assessment. 07:21 Transition of care: After a detail discussion of the patient's case, care is sp4 transferred to Thang Zavala MD. 18:41 ED course: Patient was transferred to [facility] for sp4 further evaluation,. 11/14 22:01 Order name: Acetaminophen; Complete Time: 05:12 sp4 19 22: Order name: Basic Metabolic Panel; Complete Time: 05:12 11/14 22: Order name: CBC with Diff; Complete Time: 05: 11/14 22: Order name: ETOH Level; Complete Time: 05:12 11/14 22: Order name: Hepatic Function; Complete Time: 05:12 [facility] 11/14 22: Order name: PT-INR; Complete Time: 05: 11/14 22: Order name: Test, Urine 11/14: Order name: Ptt, Activated; Complete Time: 05:12 11/14 22: Order name: Salicylate; Complete Time: 05: 11/14 22: Order name: Urine Drug Screen; Complete Time: 05: 11/14 22: Order name: EKG; Complete Time: 22: [facility] 11/14 22: Order name: EKG - Nurse/Tech; Complete Time: : 11/14 22: Order name: IV Saline Lock; Complete Time: : 11/14 22: Order name: Labs collected and sent; Complete Time: 22: [facility] 11/14 22: Order name: Suicide Precautions; Complete Time: 00: 11/14 22: Order name: Suicide Screening ([place]); Complete Time: 00:4 EC/19 21:52 Rate is 128 beats/min. Rhythm is regular, Sinus tachycardia. QRS [place] is Normal. [place] sp4 interval is normal. QRS interval is normal. QT interval is normal. No Q waves. T waves are Normal. No ST changes noted. Clinical impression: No evidence of ischemia. Interpreted by me. Reviewed by me. Administered Medications: 22:28 Drug: NS 0.9% IV 1000 ml IV at 1000 ml once; to be given as a bolus over 60 minutes jj7 Route: IV; Rate: 1000 ml; Site: right forearm; 11/15 06:31 Follow up: Response: No adverse reaction; IV Status: Completed infusion 8 11/14 22:28 Drug: NS 0.9% IV 1000 ml IV at 1000 ml once; to be given as a bolus over 60 minutes jj7 Route: IV; Rate: 1000 ml; Site: right forearm; 11/15 06:31 Follow up: Response: No adverse reaction; IV Status: Completed infusion bm8 11/14 22:28 Drug: Ondansetron IVP 4 mg IVP once; over 2 minutes Route: IVP; Site: right forearm; jj7 11/15 06:31 Follow up: Response: No adverse reaction bm8 Disposition: 18:41 Chart complete. sp4 Disposition Summary: 11/15/24 06:42 Transfer Ordered Notes: [facility] Reason: Higher level of care sp4 Condition: Stable sp4 Problem: new sp4 Symptoms: have improved sp4 Accepting Physician: Attending psychiatrist(11/15/24 09:41) ph Diagnosis - Acute overdose of diphenhydramine, suicide attempt, depression with suicidal sp4 ideation and plan Forms: - Medication Reconciliation Form sp4 - SBAR form sp4 Signatures: Dispatcher [employer] Marjorie Dickinson RN RN ph Macarena Marina RN RN jj7 Eddie Silva MD MD sp4 Holli Cerda RN RN mf3 Jaycob Dover RN bm8 Corrections: (The following items were deleted from the chart) 09:41 06:42 Attending psychiatrist sp4 ph
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
[2024-11-15 15:50] VITALS: BP 114/78; TEMP 98.2; O2SAT 98
== END 2024-11-15 09:41 ==
LOC: ER 21:42
DX: T45.0X2A Poisoning by antiallergic and antiemetic drugs, intentional self-harm, initial encounter (principal); F32.A Depression, unspecified
CPT/HCPCS: 93005; 85025; 80048; 36415; 81025; 85610; 80076; 85730; 80307; 80143; 80179; 82077; J2405; J7030